=== PATIENT | female | born 1940 | race Caucasian/White ===

== ENCOUNTER → 2021-01-13 | Outpatient (CLI) | payer MEDICARE ==
[~2021-01-13] MED LIST: ARTHRITIS PAIN650 M1 PO; ARTIFICIAL TEAR15 M6 EYEBOTH; AUGMENTIN 875-1 EACH PO; BENZONATATE100 MG PO; BUDESONIDE0.5 MG/2 M NEB; CYANOCOBAL1000 MCG/1 INJ; DOXYCYCLINE HY100 M2 PO; IPRAT-ALBUT 0.5-3 ML NEB; LEVALBUTER0.63 MG/3 INH; LEVALBUTER1.25 MG/3 INH; LEXAPRO20 MG PO; MEDROL DOSEPAK 24 MG PO; MOBIC15 MG PO; OMEPRAZOLE40 MG PO; PEPCID20 MG PO; POLY-IRON150 MG PO; PREDNISONE5 MG PO; SPIRIVA HANDIH18 MCG INH; SYMBICORT 160-1 INHA INH; SYNTHROID50 MCG PO; SYNTHROID75 MCG PO; TRELEGY ELLIPT1 EAC1 INH; VENTOLIN HFA 66.7 GM INH; VITAMIN B-121000 MCG IM; VITAMIN C1000 MG PO; VITAMIN D21250 MCG PO; XANAX 0.25 MG0.25 MG PO
== END ==
LOC: HEART CORB 09:00
DX: R07.2 Precordial pain (principal); R06.02 Shortness of breath
CPT/HCPCS: 78452; A9502; J2785

== ENCOUNTER 2021-02-08 13:50 | Inpatient (IN) | payer MEDICARE ==
[~2021-02-08] VITALS: Ht 162.6 cm; Wt 51.7 kg
[~2021-02-08 13:50] MED LIST changes: -ARTHRITIS PAIN650 M1 PO; -ARTIFICIAL TEAR15 M6 EYEBOTH; -AUGMENTIN 875-1 EACH PO; -BENZONATATE100 MG PO; -BUDESONIDE0.5 MG/2 M NEB; -DOXYCYCLINE HY100 M2 PO; -IPRAT-ALBUT 0.5-3 ML NEB; -LEVALBUTER0.63 MG/3 INH; -LEXAPRO20 MG PO; -MEDROL DOSEPAK 24 MG PO; -OMEPRAZOLE40 MG PO; -PEPCID20 MG PO; -POLY-IRON150 MG PO; -PREDNISONE5 MG PO; -SYNTHROID50 MCG PO; -TRELEGY ELLIPT1 EAC1 INH; -VITAMIN C1000 MG PO; -VITAMIN D21250 MCG PO; -XANAX 0.25 MG0.25 MG PO
[2021-02-08] MEDS ORDERED: VITAMIN D21250 MCG PO (15:02)
[2021-02-08] MEDS ORDERED: SYNTHROID50 MCG PO (19:40)
[2021-02-08] MEDS ORDERED: PEPCID20 MG PO (19:42)
[2021-02-08] MEDS ORDERED: VITAMIN C1000 MG PO (19:42)
[2021-02-08 20:25] LABS: HEMOGLOBIN 12.7 gm/dl (12.3-15.3); RED BLOOD COUNT 4.07 M/UL (4.00-5.10); WHITE BLOOD COUNT 23.9 K/UL (4.5-11.0)
[2021-02-08 20:37] LABS: BUN/CREATININE RATIO 17 (0-10)
[2021-02-09 07:33] LABS: HEMOGLOBIN 12.4 gm/dl (12.3-15.3); RED BLOOD COUNT 4.04 M/UL (4.00-5.10); WHITE BLOOD COUNT 23.1 K/UL (4.5-11.0)
[2021-02-09 08:32] LABS: BUN/CREATININE RATIO 22 (0-10)
[2021-02-09] MEDS ORDERED: BENZONATATE100 MG PO (13:58)
[2021-02-09] MEDS ORDERED: POLY-IRON150 MG PO (13:59)
[2021-02-09] MEDS ORDERED: XANAX 0.25 MG0.25 MG PO (14:01)
[2021-02-09] MEDS ORDERED: ARTHRITIS PAIN650 M1 PO (14:16)
[2021-02-09] MEDS ORDERED: ARTIFICIAL TEAR15 M6 EYEBOTH (14:18)
[2021-02-09] MEDS ORDERED: LEXAPRO20 MG PO (15:02)
[2021-02-09] MEDS ORDERED: PREDNISONE5 MG PO (15:04)
[2021-02-09] MEDS ORDERED: OMEPRAZOLE40 MG PO (19:42)
[2021-02-09] MEDS ORDERED: TRELEGY ELLIPT1 EAC1 INH (19:44)
[2021-02-09] MEDS ORDERED: LEVALBUTER0.63 MG/3 INH (19:45)
[2021-02-09] MEDS ORDERED: VENTOLIN HFA 66.7 GM INH (19:47)
[2021-02-10 06:47] LABS: HEMOGLOBIN 11.8 gm/dl (12.3-15.3); RED BLOOD COUNT 3.82 M/UL (4.00-5.10); WHITE BLOOD COUNT 28.8 K/UL (4.5-11.0)
[2021-02-10 07:08] LABS: BUN/CREATININE RATIO 30 (0-10)
[2021-02-11 05:16] LABS: HEMOGLOBIN 11.3 gm/dl (12.3-15.3); RED BLOOD COUNT 3.67 M/UL (4.00-5.10)
[2021-02-11 05:18] LABS: WHITE BLOOD COUNT 30.7 K/UL (4.5-11.0)
[2021-02-11 05:42] LABS: BUN/CREATININE RATIO 31 (0-10)
[2021-02-12 04:19] LABS: HEMOGLOBIN 11.2 gm/dl (12.3-15.3); RED BLOOD COUNT 3.58 M/UL (4.00-5.10); WHITE BLOOD COUNT 26.3 K/UL (4.5-11.0)
[2021-02-12 04:31] LABS: BUN/CREATININE RATIO 29 (0-10)
[2021-02-12] MEDS ORDERED: AUGMENTIN 875-1 EACH PO (11:27)
[2021-02-12] MEDS ORDERED: MEDROL DOSEPAK 24 MG PO (11:27)
[2021-02-12] MEDS ORDERED: PREDNISONE5 MG PO (11:27)
[2021-02-12] MEDS ORDERED: IPRAT-ALBUT 0.5-3 ML NEB (11:27)
[2021-02-12] MEDS ORDERED: DOXYCYCLINE HY100 M2 PO (11:27)
[2021-02-12] MEDS ORDERED: BUDESONIDE0.5 MG/2 M NEB ×2 (11:28→11:29)
[2021-02-14 15:10] LABS: ORGANISM ID Not indicated. (.); SPECIMEN SOURCE Urine (.); STREPTOCOCCUS PNEUMONIAE AG Negative (Negative)
== END 2021-02-12 14:29 | disposition home or self-care (01) | DRG 871 ==
LOC: MED SURG 4 18:50
PROVIDERS: Internal Medicine; Internal Medicine Pulmonary Disease; Physician Assistant; ADMIT Internal Medicine
DX: A41.9 Sepsis, unspecified organism (principal); Z20.822 Contact with and (suspected) exposure to COVID-19; J18.9 Pneumonia, unspecified organism; J96.21 Acute and chronic respiratory failure with hypoxia; J96.22 Acute and chronic respiratory failure with hypercapnia; E43 Unspecified severe protein-calorie malnutrition; I21.4 Non-ST elevation (NSTEMI) myocardial infarction; J69.0 Pneumonitis due to inhalation of food and vomit; J44.1 Chronic obstructive pulmonary disease with (acute) exacerbation; J44.0 Chronic obstructive pulmonary disease with (acute) lower respiratory infection; Z68.1 Body mass index [BMI] 19.9 or less, adult; R07.89 Other chest pain; M13.80 Other specified arthritis, unspecified site; F41.9 Anxiety disorder, unspecified; F32.9 Major depressive disorder, single episode, unspecified; E03.9 Hypothyroidism, unspecified; Z90.49 Acquired absence of other specified parts of digestive tract; Z98.49 Cataract extraction status, unspecified eye; Z72.0 Tobacco use; Z83.3 Family history of diabetes mellitus; Z88.6 Allergy status to analgesic agent
CPT/HCPCS: 36415; 36600; 71045; 74230; 80048; 80053; 82550; 82553; 82803; 83605; 83615; 83735; 83880; 84100; 84484; 85025; 86140; 87040; 87081; 87205; 87278; 87880; 87899; 92610; 92611-GN; 93005; 94640; 94664; 94667; 94668; 94760; 97110-GP-CQ; 97116-GP-CQ; 97161; C9113; J0456; J0696; J1335; J1650; J1885; J2920; J7030